=== PATIENT | female | born 1995 | race Caucasian/White ===

== ENCOUNTER → 2020-04-04 | Outpatient (REF) | payer OTHER ==
[2020-04-05 17:10] LABS: FREE T4 1.05 NG/DL (0.76-1.46); THYROID STIMULATING HORMONE 2.56 uIU/ML (0.358-3.740)
[2020-04-05 17:11] LABS: PROGESTERONE 1.09 NG/ML
[2020-04-05 17:12] LABS: FOLLICLE STIMULATING HORMONE 5.6 mIU/mL; LUTEINIZING HORMONE 3.9 mIU/mL
== END ==
LOC: M PLALAB 15:48
PROVIDERS: ATTEND Specialist
DX: N92.6 Irregular menstruation, unspecified (principal)
CPT/HCPCS: 36415; 83001; 83002; 84144; 84146; 84439; 84443; G0463

== ENCOUNTER → 2020-05-03 | Outpatient (CLI) | payer OTHER ==
[2020-05-03 16:34] LABS: HCG, SERUM QUALITATIVE POSITIVE (NEGATIVE)
== END ==
LOC: M PLALAB 12:31
PROVIDERS: ATTEND Physician Assistant
DX: L70.0 Acne vulgaris (principal)

== ENCOUNTER → 2020-05-08 | Outpatient (REF) | payer OTHER | LOC: M PLALAB 11:47 | PROVIDERS: ATTEND Advanced Practice Midwife | DX: Z34.90 Encounter for supervision of normal pregnancy, unspecified, unspecified trimester (principal) ==

== ENCOUNTER → 2020-05-10 | Outpatient (CLI) | payer OTHER | LOC: M PLALAB 12:17 | PROVIDERS: ATTEND Advanced Practice Midwife | DX: Z34.90 Encounter for supervision of normal pregnancy, unspecified, unspecified trimester (principal); Z3A.00 Weeks of gestation of pregnancy not specified ==

== ENCOUNTER → 2020-05-24 | Outpatient (REF) | payer OTHER ==
[2020-05-24 17:56] LABS: HEMATOCRIT 34.9 % (36.0-47.0); HEMOGLOBIN 11.5 g/dl (12.0-15.5); MEAN CORPUSCULAR HEMOGLOBIN 28.8 pg (27.0-33.0); MEAN CORPUSCULAR VOLUME 87.3 fl (80.0-96.0); PLATELET COUNT, AUTOMATED 262 10^3/uL (150-450); WHITE BLOOD COUNT 9.4 10^3/uL (4.0-10.0)
[2020-05-24 19:06] LABS: HEPATITIS C VIRUS ABY INDEX 0.1 INDEX (<0.8); HIV 1&2 SCREEN CENTAUR NEGATIVE (NEGATIVE)
== END ==
LOC: M PLALAB 15:31
PROVIDERS: ATTEND Specialist
DX: Z34.01 Encounter for supervision of normal first pregnancy, first trimester (principal)

== ENCOUNTER → 2020-07-14 | Outpatient (CLI) | payer OTHER | LOC: M PLALAB 10:52 | PROVIDERS: ATTEND Advanced Practice Midwife | DX: Z34.82 Encounter for supervision of other normal pregnancy, second trimester (principal); Z3A.00 Weeks of gestation of pregnancy not specified | CPT/HCPCS: 36415; G0463 ==

== ENCOUNTER → 2020-08-21 | Outpatient (CLI) | payer OTHER ==
--- NOTE | 2020-08-21 18:20 | REP ---
INDICATION: ANATOMY - TWINS. COMPARISON: None. TECHNIQUE: Transabdominal obstetric sonography. FINDINGS: Scanning through the gravid uterus demonstrates a viable twin, diamniotic, dichorionic intrauterine gestation. Fetus a is cephalic in lie. heart rate is recorded at 142 beats per minute. A posterior placenta is seen grade 1 without evidence of previa. Three-vessel umbilical cord is seen. Amniotic fluid is subjectively normal. No anomaly is seen. The following anatomic structures are identified in fetus a and are felt to be unremarkable: cranium, intracranial anatomy, face and profile nose and lips, four-chamber heart with left and right ventricular outflow tract views, diaphragm, left-sided stomach, abdominal wall cord insertion, right and left kidney, urinary bladder, spine, upper and lower extremities. Biometry chart fetus a: BPD 4.7 cm 20 weeks 1 day Head circumference 16.7 cm 19 weeks 3 days Abdominal circumference 13.2 cm, 18 weeks 5 days Femur length 2.9 cm, 18 weeks 5 days Humeral length 3.0 cm, 19 weeks 5 days HC AC ratio 1.27) 1.06-1.25 close) Cephalic index normal 0.79 Estimated weight 260 g, 0 lb 9 oz, 21st percentile for 19 weeks 2 days Fetus B is variable in lie and slightly to the right. Posterior fundal placenta is seen grade 1. Amniotic fluid is subjectively normal. heart rate is recorded at 161 beats per minute. No anomaly is seen in fetus B. The following anatomic structures are identified in fetus B and are felt to be unremarkable: cranium and intracranial anatomy, face and profile nose and lips, four-chamber heart with left and right ventricular outflow tract views, diaphragm, left-sided stomach, abdominal wall cord insertion, kidneys and bladder, spine, upper and lower extremities. Three-vessel cord is seen. Biometry chart fetus B: BPD 4.4 cm, 19 weeks 3 days Head circumference 16.1 cm, 18 weeks 6 days Abdominal circumference 13.8 cm, 19 weeks 1 day Femur length 2.9 cm, 19 weeks 0 days Humeral length 2.8 cm, 19 weeks 1 day HC AC ratio normal 1.17 Cephalic index normal 0.77 Estimated weight 272 g, 0 lb 9 oz, 31st percentile for 19 weeks 2 days Closed cervical length measured transabdominally is 3.2 cm. IMPRESSION: Viable twin intrauterine gestation at 19 weeks 2 days by today's composite sonographic criteria. LULU by today's sonography January 13, 2021. No complication identified. <Electronically signed by Cornelius Garcia > 08/21/20 [id number]
== END ==
LOC: M WHC 11:04
PROVIDERS: ATTEND Specialist
DX: O30.002 Twin pregnancy, unspecified number of placenta and unspecified number of amniotic sacs, second trimester (principal); Z3A.19 19 weeks gestation of pregnancy

== ENCOUNTER → 2020-10-11 | Outpatient (REF) | payer OTHER ==
[2020-10-11 13:10] LABS: HEMATOCRIT 32.2 % (36.0-47.0); HEMOGLOBIN 10.9 g/dl (12.0-15.5); MEAN CORPUSCULAR HEMOGLOBIN 30.4 pg (27.0-33.0); MEAN CORPUSCULAR HGB CONC 33.9 g/dl (32.0-36.5); MEAN CORPUSCULAR VOLUME 89.7 fl (80.0-96.0); PLATELET COUNT, AUTOMATED 226 10^3/uL (150-450); RED BLOOD COUNT 3.59 10^6/uL (4.00-5.40); WHITE BLOOD COUNT 11.3 10^3/uL (4.0-10.0)
== END ==
LOC: M PLALAB 10:49
PROVIDERS: ATTEND Specialist
DX: O30.042 Twin pregnancy, dichorionic/diamniotic, second trimester (principal)

== ENCOUNTER → 2020-11-09 | Outpatient (CLI) | payer OTHER ==
--- NOTE | 2020-11-10 07:57 | REP ---
INDICATION: GROWTH/TWINS COMPARISON: 08/21/2020 TECHNIQUE: Transabdominal obstetrical ultrasound with color Doppler evaluation. Transabdominal obstetrical ultrasound with color Doppler evaluation FINDINGS: Examination demonstrates dichorionic diamniotic twin live intrauterine . Gestational age by LMP 30 weeks 1 day with estimated date of delivery 01/17/2021. Cervix measures 2.8 cm and appears closed. TWIN A: Cephalic presentation towards right side of the uterus. heart rate equals 161 beats per minute. Placenta noted posterior and grade 2. Amniotic fluid volume deepest pocket: 4.6 cm Estimated weight by biometric measurements 1390 g (17th percentile) TWIN B: Breech presentation towards anterior left side of the uterus. heart rate equals 169 beats per minute. Placenta noted posterior/fundal and grade 2. Amniotic fluid volume deepest pocket: 3.8 cm Estimated weight by biometric measurements 1465 g (28th percentile) IMPRESSION: Twin gestation demonstrating appropriate concordant interval growth. No gross abnormalities are identified. <Electronically signed by Alton Crook > 11/10/20 [id number]
== END ==
LOC: M WHC 09:58
PROVIDERS: ATTEND Specialist
DX: O30.042 Twin pregnancy, dichorionic/diamniotic, second trimester (principal)
CPT/HCPCS: 76812; 76815; 90471; 90715; G0463

== ENCOUNTER → 2020-12-07 | Outpatient (CLI) | payer OTHER ==
[~2020-12-07] MED LIST: IBUP80TA PO; LABE100T4 PO; OXYC1TAB23 PO; PREN200C PO
--- NOTE | 2020-12-07 14:46 | REP ---
INDICATION: TWINS - GROWTH COMPARISON: 11/09/2020 TECHNIQUE: Transabdominal obstetrical ultrasound with color Doppler evaluation. FINDINGS: Examination demonstrates dichorionic diamniotic twin live intrauterine . Gestational age by LMP 34 weeks 1 day with estimated date of delivery 01/17/2021. Cervix appears closed. TWIN A: Cephalic presentation. heart rate equals 133 beats per minute. Placenta noted posteriorly and grade 2. Amniotic fluid volume deepest pocket: 3.2 cm Estimated weight by biometric measurements 2163 g 22nd percentile TWIN B: Breech presentation. heart rate equals 135 beats per minute. Placenta noted posterior/fundal and grade 2. Amniotic fluid volume deepest pocket: 3.1 cm Estimated weight by biometric measurements 2123 g 18th percentile IMPRESSION: Twin gestation demonstrating appropriate concordant interval growth. No gross abnormalities are identified. <Electronically signed by Alton Crook > 12/07/20 [id number]
== END ==
LOC: M WHC 08:50
PROVIDERS: ATTEND Specialist
DX: O30.042 Twin pregnancy, dichorionic/diamniotic, second trimester (principal)
CPT/HCPCS: 59025; 76816; G0463

== ENCOUNTER 2020-12-10 23:18 | Emergency (ER) | payer OTHER ==
[~2020-12-10] VITALS: Ht 172.7 cm; Wt 94.6 kg
[2020-12-10] MEDS ORDERED: PREN200C PO (23:25)
--- NOTE | 2020-12-11 00:14 | REPVR ---
PROCEDURE INFORMATION: Exam: US Duplex Right Lower Extremity Veins, Limited Exam date and time: 12/10/2020 11:49 PM Age: 25 years old Clinical indication: Pain; Leg, lower; Right; Additional info: Pain, swelling, tenderness TECHNIQUE: Imaging protocol: Real-time Duplex ultrasound of the Right Lower Extremity with 2-D suh scale, color Doppler flow and spectral waveform analysis with image documentation. Limited exam was focused on the right lower extremity veins. COMPARISON: No relevant prior studies available. FINDINGS: Right deep veins: Unremarkable. The common femoral, femoral, proximal profunda femoral and popliteal veins are patent without thrombus. Normal Doppler waveforms. Normal compressibility and/or augmentation response. Right superficial veins: Unremarkable. Saphenofemoral junction is patent without thrombus. Soft tissues: Unremarkable. IMPRESSION: No evidence of deep vein thrombosis. Electronically signed by: Kal Santana On 12/11/2020 00:14:01 AM
[2020-12-11 00:53] VITALS: BP 150/90
== END 2020-12-11 01:33 | disposition admitted as inpatient to this hospital (09) ==
LOC: M ED 23:18
DX: O12.03 Gestational edema, third trimester (principal); Z3A.35 35 weeks gestation of pregnancy

== ENCOUNTER 2020-12-11 01:34 | Inpatient (IN) | payer OTHER ==
[~2020-12-11] VITALS: Ht 172.7 cm; Wt 94.6 kg
[2020-12-11] VITALS (32 sets, daily range): BP systolic 118–162; BP diastolic 72–108
[~2020-12-11 01:34] MED LIST changes: -IBUP80TA PO; -LABE100T4 PO; -OXYC1TAB23 PO
[2020-12-11 02:09] LABS: HEMATOCRIT 31.4 % (36.0-47.0); HEMOGLOBIN 10.2 g/dl (12.0-15.5); MEAN CORPUSCULAR HEMOGLOBIN 28.2 pg (27.0-33.0); MEAN CORPUSCULAR HGB CONC 32.5 g/dl (32.0-36.5); MEAN CORPUSCULAR VOLUME 86.7 fl (80.0-96.0); PLATELET COUNT, AUTOMATED 177 10^3/uL (150-450); RED BLOOD COUNT 3.62 10^6/uL (4.00-5.40); WHITE BLOOD COUNT 11.5 10^3/uL (4.0-10.0)
[2020-12-11 02:41] LABS: TOTAL PROTEIN,RANDOM URINE 305.6 MG/DL (0.0-12.0)
[2020-12-11 02:58] LABS: ALBUMIN 2.3 GM/DL (3.2-5.2); ALT/SGPT 17 U/L (12-78); BILIRUBIN,TOTAL 0.2 MG/DL (0.2-1.0); BLOOD UREA NITROGEN 15 MG/DL (7-18); CALCIUM LEVEL 8.3 MG/DL (8.5-10.1); CARBON DIOXIDE LEVEL 23 MEQ/L (21-32); CHLORIDE LEVEL 109 MEQ/L (98-107); CREATININE FOR GFR 0.88 MG/DL (0.55-1.30); GLOMERULAR FILTRATION RATE > 60.0 (>60); GLUCOSE, FASTING 87 MG/DL (70-100); POTASSIUM SERUM 4.1 MEQ/L (3.5-5.1); SODIUM LEVEL 140 MEQ/L (136-145); TOTAL PROTEIN 5.5 GM/DL (6.4-8.2)
[2020-12-11] MEDS ORDERED: BETAMETHASONE SOLUSPAN 6MG/ML 5ML VIAL (J0702 PER 3MG) IM SCH ×2 (03:30→15:30)
[2020-12-11] MEDS ORDERED: ACETAMINOPHEN 500 MG TAB PO ONE ×2 (03:40→13:05)
[2020-12-11] MEDS ORDERED: PRENATAL VITAMINS CHEWABLE TABLET PO SCH (09:00)
[2020-12-11 10:19] LABS: HEMATOCRIT 30.4 % (36.0-47.0); HEMOGLOBIN 9.9 g/dl (12.0-15.5); MEAN CORPUSCULAR HGB CONC 32.6 g/dl (32.0-36.5); MEAN CORPUSCULAR VOLUME 86.1 fl (80.0-96.0); PLATELET COUNT, AUTOMATED 168 10^3/uL (150-450); RED BLOOD COUNT 3.53 10^6/uL (4.00-5.40); WHITE BLOOD COUNT 9.8 10^3/uL (4.0-10.0)
[2020-12-11 10:44] LABS: ALBUMIN 2.4 GM/DL (3.2-5.2); ALT/SGPT 19 U/L (12-78); BILIRUBIN,TOTAL 0.3 MG/DL (0.2-1.0); BLOOD UREA NITROGEN 17 MG/DL (7-18); CALCIUM LEVEL 8.5 MG/DL (8.5-10.1); CARBON DIOXIDE LEVEL 21 MEQ/L (21-32); CHLORIDE LEVEL 107 MEQ/L (98-107); CREATININE FOR GFR 1.06 MG/DL (0.55-1.30); GLOMERULAR FILTRATION RATE > 60.0 (>60); GLUCOSE, FASTING 114 MG/DL (70-100); POTASSIUM SERUM 4.2 MEQ/L (3.5-5.1); SODIUM LEVEL 138 MEQ/L (136-145); TOTAL PROTEIN 5.5 GM/DL (6.4-8.2)
--- NOTE | 2020-12-11 10:57 | HPEPDOC ---
Obstetrical History & Physical General Date of Admission 12/11/20 History of Present Illness Jessica is a 25yo with di-di twins at 34w5d by 6wk u/s presenting from the ER for elevated bp. She originally called me last night to ask about the swelling in her legs, and specifically her concern that her legs were different in size (right calf larger than left). No other sx. I asked her to come in to the ER to rule out DVT and she was evaluated there with ultrasound which was negative for DVT. However, she had a severe range bp followed by 150/90, so I asked that she be sent up to L&D for pre-eclampsia workup. Labs were obtained and resulted urine prot:creat 1.6, diagnostic of pre-eclampsia in the setting of her persistently elevated (mostly mild range) bp's. LFTs wnl. Creat 0.88, plt 177 (this is decreased from 226 on 10/11). H/H 10.2/31.4. She was noted to also be reymundo when she arrived to L&D, though ctx are not strong. She has good movement. No LOF. No VB. No ADAMS. No vision changes. Information Provided By: Patient Care Care: Good Care Dating Final EDC: Jan 17, 2021 Final EDC by: 1st trimester (US) Antepartum Course Diagnos(e)s Infertility treated with clomid, rh neg received rhogam on 10/27 Past Medical History Past Obstetrical History : Past Obstetrical History: Primgravida Past Medical History Medical History benign Surgical History: [place] teeth Family History Significant Family History: No pertinent family hx Social History Marital Status: Family situation: Spouse/partner home Psychosocial History: No pertinent psych hx * Smoker: non-smoker Alcohol: Denies Drugs: denies Allergies Coded Allergies: No Known Allergies (Unverified , 12/10/20) Medications Scheduled Docosahexanoic Acid ( Dha) 200 Mg Capsule, 1 CAP PO DAILY Physical Examination Physical Examination GENERAL: Alert and oriented times three. ABDOMEN: Gravid and non-tender to touch. EXTREMITIES: 2+ pedal edema Vital Signs/I&O Vital Signs Date Time Temp Pulse Resp B/P (MAP) Pulse Ox O2 Delivery O2 Flow Rate FiO2 12/11/20 08:48 85 18 130/80 (97) 12/11/20 07:18 99.3 12/11/20 02:05 Room Air Laboratory Data 24H LABS Laboratory Tests 2 12/11/20 01:53: Urine Random Creatinine 187.0, Urine Random Total Protein 305.6H 12/11/20 02:01: Nucleated Red Blood Cells % (auto) 0.2H, Anion Gap 8, Glomerular Filtration Rate > 60.0, Calcium Level 8.3L, Total Bilirubin 0.2, Aspartate Amino Transf ( AST/SGOT) 27, Alanine Aminotransferase (ALT/SGPT) 17, Alkaline Phosphatase 329H, Total Protein 5.5L, Albumin 2.3L, Albumin/Globulin Ratio 0.7L 12/11/20 09:59: CBC/BMP Laboratory Tests 12/11/20 02:01 Pertinent Laboratoy Data Blood Type: O- RBC Antibody Screen: Negative HIV: Negative Hepatitis B: Negative Hepatitis C: Negative Rapid Plasma Reagin: Nonreactive Rubella: Immune Chlamydia/Gonorrhea: Negative Group B Streptococcus: Unknown Quad Screen Test: Negative (NIPT low risk dizygotic males) Glucose Tolerance Test: 84 Anatomy Ultrasound Ultrasound Date: Aug 21, 2020 Placenta Location: Posterior (/posterior) Normal Anatomy: Yes (for both twins) Placenta Previa: No Other Ultrasounds 12/07/20: twin A cephalic 22nd %ile, twin B breech 18%ile. Steroid Therapy Steroid Therapy: Yes (first dose given at 0330 on 12/11) Vaginal Examination Dilation: 1cm Effacement: 90% Station: -1 Cervical Consistency: Soft Cervical Position: Middle Presentation: Cephalic presentation Assessment Heart Rate (FHR): 120 (130) Variability: Moderate (x2) Accelerations: Positive (x2) Decelerations: None (x2) Tocometer Contractions: Yes Frequency: regular, every 3-7 min. Duration: greater than 60 seconds Strength: palpated as mild Assessment/Plan Assessment Jessica is a 25yo with di-di twins at 34w5d by 6wk u/s with new diagnosis of pre-eclampsia withOUT severe features. She was solidly normotensive for all of her OB visits, including her most recent visit on 12/07. However, on presentation she had a severe range bp with persistent mild range bp's after. Urine prot:creat 1.6. creat 0.88. plt 177. She is anemic. No sx of severe pre-E. Twin A cephalic on SCE, /-1. Regular ctx occurring that pt feels as mild. Twin B breech on GS done 12/07- twins have been concordant, most recently seen to be 22%ile/18%ile. Reassuring status x2 with Cat I FHRT x2. Plan Counseled pt regarding new dx of pre-eclampsia withOUT severe features Currently on observation status Pt given 1st dose IM 12mg betamethasone at 0330 on 12/11 with plan for 2nd dose 24hr after 24hr urine protein collection Diet: regular for now CEFM Group B Streptococcus (GBS) to be obtained Will repeat CBC and CMP 8hr after prior labs Discussed plan of care with oncoming provider, OCTAVIA Browning and also Dr. Ray as he has seen patient for her entire Will develop plan for delivery as we continue to observe for possible progression into labor vs worsening sx of pre-E, etc. MD Karime Crain Katrina D MD December 11, 2020 10:57
[2020-12-11] MEDS ORDERED: TRANEXAMIC ACID INJection 1,000 MG in NS 100 ML IV PRN (12:35)
[2020-12-11] MEDS ORDERED: OXYTOCIN DRIP 30 UNITS in IV 1 EA IV PRN (12:35)
[2020-12-11] MEDS ORDERED: CARBOPROST TROMETHAMINE 250 MCG/ML AMP IM PRN (12:35)
--- NOTE | 2020-12-11 13:15 | IPNPDOC ---
Obstetrical Progress Note Date of Service December 11, 2020 Subjective Patient reports she has a mild headache. Objective Vital Signs Date Time Temp Pulse Resp B/P (MAP) Pulse Ox O2 Delivery O2 Flow Rate FiO2 12/11/20 12:50 81 18 143/86 (105) 12/11/20 07:18 99.3 12/11/20 02:05 Room Air Item Value Date Time Sodium Level 138 MEQ/L 12/11/20 0959 Potassium Level 4.2 MEQ/L 12/11/20 0959 Chloride Level 107 MEQ/L 12/11/20 0959 Carbon Dioxide Level 21 MEQ/L 12/11/20 0959 Anion Gap 10 MEQ/L 12/11/20 0959 Blood Urea Nitrogen 17 MG/DL 12/11/20 0959 Creatinine 1.06 MG/DL 12/11/20 0959 Glomerular Filtration Rate > 60.0 12/11/20 0959 Fasting Glucose 114 MG/DL H 12/11/20 0959 Calcium Level 8.5 MG/DL 12/11/20 0959 Total Bilirubin 0.3 MG/DL 12/11/20 0959 Aspartate Amino Transf (AST/SGOT) 27 U/L 12/11/20 0959 Alanine Aminotransferase (ALT/SGPT) 19 U/L 12/11/20 0959 Alkaline Phosphatase 315 U/L H 12/11/20 0959 Total Protein 5.5 GM/DL L 12/11/20 0959 Albumin 2.4 GM/DL L 12/11/20 0959 Albumin/Globulin Ratio 0.8 L 12/11/20 0959 Assessment Heart Rate (FHR): 130 (Twin A 130/Twin B 125) Variability: Moderate Accelerations: Positive Decelerations: None Heart Rate Tracing: Category I Tocometer Contractions: Yes Frequency: irregular Assessment and Plan Age: 25 EGA at Admission: 34.5 Status: Reassuring Anticipate: Section Additional Comments Will give betamethasone earlier at [address] Ray on changes in creatinine. 1600 lab results will help determine timing of delivery. Reviewed with patient. Bedside ultrasound done and Twin A is cephalic and Twin B is breech. Patient desires section if Twin B is not cephalic. The risks/benefits alternatives have been discussed previously with her and again today. Tylenol ordered for headache. MIHAELA MILLER CNM December 11, 2020 13:15
[2020-12-11 16:00] LABS: HEMOGLOBIN 10.1 g/dl (12.0-15.5); MEAN CORPUSCULAR HEMOGLOBIN 28.1 pg (27.0-33.0); MEAN CORPUSCULAR HGB CONC 32.6 g/dl (32.0-36.5); MEAN CORPUSCULAR VOLUME 86.4 fl (80.0-96.0); PLATELET COUNT, AUTOMATED 192 10^3/uL (150-450); RED BLOOD COUNT 3.59 10^6/uL (4.00-5.40)
[2020-12-11 16:22] LABS: ALBUMIN 2.4 GM/DL (3.2-5.2); ALT/SGPT 18 U/L (12-78); BILIRUBIN,TOTAL 0.3 MG/DL (0.2-1.0); BLOOD UREA NITROGEN 18 MG/DL (7-18); CALCIUM LEVEL 8.4 MG/DL (8.5-10.1); CARBON DIOXIDE LEVEL 20 MEQ/L (21-32); CHLORIDE LEVEL 107 MEQ/L (98-107); CREATININE FOR GFR 0.92 MG/DL (0.55-1.30); GLOMERULAR FILTRATION RATE > 60.0 (>60); GLUCOSE, FASTING 79 MG/DL (70-100); POTASSIUM SERUM 4.1 MEQ/L (3.5-5.1); SODIUM LEVEL 136 MEQ/L (136-145); TOTAL PROTEIN 5.9 GM/DL (6.4-8.2)
--- NOTE | 2020-12-11 17:28 | IPNPDOC ---
Text Note Date of Service The patient was seen on 12/11/20. NOTE Reviewed labs with Dr. Ray. They are stable and patient's BP's are stable. Dr. Ray's plan is for a primary section at 0730. Patient and updated on plan. She may eat a regular diet and NPO tonight after midnight. She does report a slight headache but thinks it is because she hasn't eaten all day. Encouraged to eat dinner and we will evaluate if her headache is still present after she eats. All questions answered. Patient encouraged to let us know any changes including preeclamptic changes. Category I FHR tracing for both Twin A and Twin B. VS,Fishbone, I+O VS, Fishbone, I+O Laboratory Tests 12/11/20 02:01 12/11/20 09:59 12/11/20 15:52 Vital Signs Date Time Temp Pulse Resp B/P (MAP) Pulse Ox O2 Delivery O2 Flow Rate FiO2 12/11/20 16:36 80 16 148/89 (108) 12/11/20 14:34 98.9 12/11/20 02:05 Room Air MIHAELA MILLER CNM December 11, 2020 17:28
[2020-12-12] VITALS (18 sets, daily range): BP systolic 120–146; BP diastolic 65–102
[2020-12-12] MEDS ORDERED: LACTATED RINGER'S 1000 ML IV STA (05:06)
[2020-12-12] MEDS ORDERED: ceFAZolin SOD 2 GM in IV 1 EA IV ONE (05:10)
[2020-12-12] MEDS ORDERED: BICITRA 30ML SOLN UDC PO ONE (05:10)
[2020-12-12 05:29] LABS: HEMOGLOBIN 9.6 g/dl (12.0-15.5); MEAN CORPUSCULAR HEMOGLOBIN 27.8 pg (27.0-33.0); PLATELET COUNT, AUTOMATED 199 10^3/uL (150-450); RED BLOOD COUNT 3.45 10^6/uL (4.00-5.40); WHITE BLOOD COUNT 15.2 10^3/uL (4.0-10.0)
[2020-12-12 05:54] LABS: ALT/SGPT 23 U/L (12-78); BILIRUBIN,TOTAL 0.3 MG/DL (0.2-1.0); CREATININE FOR GFR 1.07 MG/DL (0.55-1.30); GLOMERULAR FILTRATION RATE > 60.0 (>60); LDH LACTATE DEHYDROGENASE 240 U/L (84-246); URIC ACID 6.7 MG/DL (2.6-6.0)
[2020-12-12] MEDS ORDERED: METOCLOPRAMIDE INJ 10MG/2ML VIAL (J2765 PER 1) As Ordered ONE (07:20)
[2020-12-12] MEDS ORDERED: ePHEDrine SULFATE 25 MG/5 ML(5MG/ML) SYRINGE As Ordered ONE (07:20)
[2020-12-12] MEDS ORDERED: MORPHINE PRES-FREE INJ 10 MG/10 ML VIAL (J2274) As Ordered ONE (07:20)
[2020-12-12] MEDS ORDERED: PHENYLephrine 500MCG 5ML (100MCG/ML) SYRINGE As Ordered ONE (07:20)
[2020-12-12] MEDS ORDERED: diphenhydrAMINE 50MG/ML VIAL (J1200) IV PRN (07:45)
[2020-12-12] MEDS ORDERED: NALBUPHINE HCL 10 MG/ML AMP (J2300) IV PRN ×2 (07:45→09:10)
[2020-12-12] MEDS ORDERED: NALOXONE INJ 0.4MG/1ML VIAL (J2310 PER 1MG) IV PRN ×2 (07:45)
[2020-12-12] MEDS ORDERED: METOCLOPRAMIDE INJ 10MG/2ML VIAL (J2765 PER 1) IV PRN (07:45)
[2020-12-12] MEDS ORDERED: ONDANSETRON 4MG/2ML VIAL IV PRN ×2 (07:45→09:10)
[2020-12-12] MEDS ORDERED: KETOROLAC 60MG 2ML VIAL As Ordered ONE (08:16)
[2020-12-12] MEDS ORDERED: ONDANSETRON 4MG/2ML VIAL As Ordered ONE (08:16)
[2020-12-12] MEDS ORDERED: OXYTOCIN DRIP 30 UNITS in IV 1 EA IV SCH (08:35)
--- NOTE | 2020-12-12 08:40 | ROOPDOC ---
[facility] Report Of Operation Report of Operation DATE OF PROCEDURE: 12/12/20 Report of operation Preoperative diagnosis: 34 6/7 weeks, twins, preeclampsia Postoperative diagnosis: same Procedure: Primary low transverse section Surgeon: Alberto Luque M.D. Asst.: Sharon Monroe MD EBL: 600 ml. Urine output: 100 mL's. Findings: Twin A: 4 lbs. 14 oz. male infant, 's 9 and 9, vertex normal uterus, fallopian tubes, ovaries. Twin B: 4 lb 11 oz male , 's 9, 9, breech Operative summary: Patient taken to the operating room where spinal anesthesia was induced. She was prepped and draped sterile fashion in the supine position. A Schmitt catheter was placed. A Pfannenstiel skin incision was made with scalpel. Fascia was incised and extended bilaterally. The peritoneal cavity was entered. A Mobius retractor was placed. A bladder flap was created. A curvilinear incision was made in lower uterine segment until Clear fluid was noted. The incision was extended manually. Twin A was delivered from the vertex position without difficulty. Cord was doubly clamped and cut. The was handed waiting nurses. Membranes were ruptured for twin B. Twin B delivered from the purvi breech position without difficulty. The placenta's were expressed. Uterus was closed with O-Vicryl in a running locked fashion. A second imbricating layer of Vicryl was placed. Peritoneum was closed with 2-0 Vicryl a running fashion. Fascia was closed with 0 Vicryl in running fashion. Skin was closed 4-0 Monocryl subcuticular sutures. Sponge, instrument and needle counts were correct. Sharon Monroe MD, assisted with all aspects of the procedure. He helped close each layer of the incision and deliver the fetus.. ALBERTO LUQUE MD December 12, 2020 08:40
[2020-12-12] MEDS ORDERED: OXYTOCIN 30 UNITS IN 0.9% NaCl 500ML IV BAG (J2590) As Ordered ONE (08:48)
[2020-12-12] MEDS ORDERED: RHOGAM 300 MCG (1500 IU) INJ (J2790) IM SCH (09:00)
[2020-12-12] MEDS ORDERED: PERCOCET 5MG/325MG TAB PO PRN ×2 (09:00)
[2020-12-12] MEDS ORDERED: MOM 30ML SUSPENSION UDC PO PRN (09:00)
[2020-12-12] MEDS ORDERED: MEASLES,MUMPS,RUBELLA VACCINE INJ (MMR-II) (90707) SC SCH (09:00)
[2020-12-12] MEDS ORDERED: SIMETHICONE 80MG CHEW TAB PO PRN (09:00)
[2020-12-12] MEDS ORDERED: oxyCODONE 5MG TAB PO PRN (09:10)
[2020-12-12] MEDS ORDERED: HYDROMORPHONE HCL 0.5 MG/ 0.5 ML SYRINGE (J1170 PER 1) IV PRN (09:10)
[2020-12-12] MEDS ORDERED: MEPERIDINE INJ 25 MG/ML VIAL (J2175) IV PRN (09:10)
[2020-12-12] MEDS ORDERED: KETOROLAC 30 MG/ML 1ML VIAL IV PRN (09:10)
[2020-12-12] MEDS ORDERED: fentaNYL 100 MCG/2 ML INJECTION (J3010) IV PRN (09:10)
[2020-12-12] MEDS: DOCUSATE SODIUM 100MG CAPSULE PO SCH ×2 (10:54→21:01)
[2020-12-12] MEDS: PRENATAL VITAMINS CHEWABLE TABLET PO SCH (10:54)
[2020-12-12] MEDS: LR 1,000 ML IV SCH ×3 (13:04→22:50)
[2020-12-12] MEDS ORDERED: LR 1,000 ML IV ONE (14:15)
[2020-12-12] MEDS ORDERED: LR 500 ML IV ONE ×2 (14:15→18:20)
[2020-12-12] MEDS: KETOROLAC 30 MG/ML 1ML VIAL IV SCH ×2 (15:21→21:01)
[2020-12-13] VITALS (7 sets, daily range): BP systolic 138–174; BP diastolic 86–106
[2020-12-13] MEDS: KETOROLAC 30 MG/ML 1ML VIAL IV SCH (02:56)
[2020-12-13 07:00] LABS: HEMATOCRIT 25.1 % (36.0-47.0); HEMOGLOBIN 8.1 g/dl (12.0-15.5); MEAN CORPUSCULAR HEMOGLOBIN 28.6 pg (27.0-33.0); MEAN CORPUSCULAR HGB CONC 32.3 g/dl (32.0-36.5); MEAN CORPUSCULAR VOLUME 88.7 fl (80.0-96.0); PLATELET COUNT, AUTOMATED 171 10^3/uL (150-450); RED BLOOD COUNT 2.83 10^6/uL (4.00-5.40)
[2020-12-13] MEDS ORDERED: IBUP80TA PO (07:09)
[2020-12-13] MEDS ORDERED: OXYC1TAB23 PO (07:09)
[2020-12-13] MEDS: PRENATAL VITAMINS CHEWABLE TABLET PO SCH (07:45)
[2020-12-13] MEDS: DOCUSATE SODIUM 100MG CAPSULE PO SCH ×2 (07:45→21:14)
--- NOTE | 2020-12-13 07:45 | IPNPDOC ---
Progress Note Date of Service: December 13, 2020 Day#: 1 Progress Note SUBJECT: Doing well without complaints. Ambulating, voiding and pain is well- controlled. Denies headaches, visual changes or abd pain. Reports minimal lochia. OBJECTIVE: VITAL SIGNS: Mild range BPs afebrile. Alert and oriented times three. Abdomen: Fundus firm at U-2. Soft, NTTP. Incision: dressed Ext: neg calf tenderness. ASSESSMENT: /postoperative day #1 status post delivery. Recovering in stable condition. PLAN: 1. Continue routine /postoperative care 2. Discharge plans for tomorrow Sharon Monroe MD VS, I&O, 24H, Fishbone Vital Signs/I&O Vital Signs Date Time Temp Pulse Resp B/P (MAP) Pulse Ox O2 Delivery O2 Flow Rate FiO2 12/13/20 05:56 98.9 79 16 141/95 (110) 99 Room Air I&O- Last 24 Hours up to 6 AM 12/13/20 05:59 Intake Total 2475 ml Output Total 1950 ml Balance 525 ml Laboratory Data 24H LABS Laboratory Tests 2 12/13/20 06:32: Nucleated Red Blood Cells % (auto) 0.5H CBC/BMP Laboratory Tests 12/13/20 06:32 Microbiology Microbiology 12/11/20 Respiratory Virus Panel (PCR) (TAMIKO) - Final, Complete 12/11/20 Group B Streptococcus Screen (TAMIKO), Received Pending SHARON MONROE MD. December 13, 2020 07:45
[2020-12-13] MEDS: IBUPROFEN 800 MG TAB PO SCH ×2 (10:27→18:00)
[2020-12-14 02:00] VITALS: BP 178/88
[2020-12-14 02:10] VITALS: BP 141/80
[2020-12-14] MEDS: IBUPROFEN 800 MG TAB PO SCH ×3 (02:19→18:15)
[2020-12-14 06:00] VITALS: BP 176/102
[2020-12-14 06:16] VITALS: BP 158/88
[2020-12-14] MEDS: DOCUSATE SODIUM 100MG CAPSULE PO SCH ×2 (10:12→21:46)
[2020-12-14] MEDS: PRENATAL VITAMINS CHEWABLE TABLET PO SCH (10:12)
[2020-12-14] MEDS: LABETALOL 100MG TAB PO SCH ×2 (10:14→21:46)
[2020-12-14 18:00] VITALS: BP_SYST 150; BP_SYST 174; BP_DIAS 104; BP_DIAS 86
[2020-12-15 01:30] VITALS: BP 146/75
[2020-12-15] MEDS: IBUPROFEN 800 MG TAB PO SCH ×2 (01:57→10:47)
[2020-12-15 05:37] VITALS: BP 139/90
[2020-12-15 09:27] VITALS: BP 141/84
[2020-12-15] MEDS: DOCUSATE SODIUM 100MG CAPSULE PO SCH (09:27)
[2020-12-15] MEDS: LABETALOL 100MG TAB PO SCH (09:27)
[2020-12-15] MEDS: PRENATAL VITAMINS CHEWABLE TABLET PO SCH (09:27)
--- NOTE | 2020-12-15 10:58 | DS.PDOC ---
Discharge Summary General Date of Admission December 11, 2020 at 13:30 Date of Discharge December 15, 2020 Discharge Summary PROCEDURES PERFORMED DURING STAY: Primary section ADMITTING DIAGNOSES: 1. Di/Di twin gestation, 34w5d 2. PreEclampsia DISCHARGE DIAGNOSES: 1. Primary section 2. Preeclampsia COMPLICATIONS/CHIEF COMPLAINT: LABOR. HISTORY OF PRESENT ILLNESS: 25yo G1 admitted for preeclampsia. Known di/di twin gestation. Patient requested primary due to breech presentation of Baby B. Performed by Dr Ray 12/12/2020. HOSPITAL COURSE: Ambulating. Adequate pain management. Tolerating regular diet. Pumping, . Voiding. Passing flatus. Blood pressures improved on labetalol 100mg BID DISCHARGE MEDICATIONS: Please see below. ALLERGIES: Please see below. PHYSICAL EXAMINATION ON DISCHARGE: VITAL SIGNS: Please see below. GENERAL: No distress HEENT: WNL NECK: Supple CARDIOVASCULAR EXAMINATION: HRR, blood pressures WNL or mild range RESPIRATORY EXAMINATION: Unlabored, clear ABDOMINAL EXAMINATION: Fundus firm. Dressing intact EXTREMITIES: Equal strength and motion SKIN: Intact NEUROLOGICAL EXAMINATION: Grossly intact PSYCHIATRIC EXAMINATION: Appropriate LABORATORY DATA: Please see below. PROGNOSIS: Good ACTIVITY: As tolerated. Pelvic rest. DIET: As tolerated DISCHARGE PLAN: Discharge today. Continue labetalol 100mg BID. Office visit early next week for blood pressure check. Remove dressing day 5 DISPOSITION: Home DISCHARGE INSTRUCTIONS: 1. Pelvic rest. Continue vitamins. Medications as ordered. Call with fever, nausea, vomiting, chills, foul lochia, wound exudate or evidence infection. RTO early next week for blood pressure check. DISCHARGE CONDITION: Stable TIME SPENT ON DISCHARGE: Greater than 10 minutes. Vital Signs/I&Os Vital Signs Date Time Temp Pulse Resp B/P (MAP) Pulse Ox O2 Delivery O2 Flow Rate FiO2 12/15/20 09:27 91 141/84 12/15/20 05:37 99.3 17 98 Room Air Microbiology Microbiology 12/11/20 Respiratory Virus Panel (PCR) (TAMIKO) - Final, Complete 12/11/20 Group B Streptococcus Screen (TAMIKO) - Final, Complete Strep Agalactiae Group B Discharge Medications Scheduled Docosahexanoic Acid ( Dha) 200 Mg Capsule, 1 CAP PO DAILY, (Reported) Ibuprofen (Ibuprofen) 800 Mg Tablet, 800 MG PO Q8H Scheduled PRN Oxycodone HCl/Acetaminophen (Oxycodone-Acetaminophen 5-325) 1 Each Tablet, 1 TAB PO TIDP PRN for pain Allergies Coded Allergies: No Known Allergies (Unverified , 12/10/20) Dary Paredes CNM December 15, 2020 10:58
[2020-12-15] MEDS ORDERED: LABE100T4 PO (11:00)
== END 2020-12-15 12:45 | disposition home or self-care (01) | DRG 773 ==
LOC: M LDO 01:34 → M LDI 13:30 → M OBS 12-12 09:55
PROVIDERS: ADMIT Advanced Practice Midwife; ATTEND Advanced Practice Midwife
PROC: 10D00Z1 Extraction of Products of Conception, Low, Open Approach (ICD-10-PCS; principal; 2020-12-12 07:36)
DX: O14.94 Unspecified pre-eclampsia, complicating childbirth (principal); Z3A.34 34 weeks gestation of pregnancy; Z37.2 Twins, both liveborn; O60.14X0 Preterm labor third trimester with preterm delivery third trimester, not applicable or unspecified; O32.1XX0 Maternal care for breech presentation, not applicable or unspecified; O30.043 Twin pregnancy, dichorionic/diamniotic, third trimester

== ENCOUNTER 2020-12-28 18:19 | Emergency (ER) | payer OTHER ==
[~2020-12-28] VITALS: Ht 172.7 cm; Wt 72.7 kg
[~2020-12-28 18:19] MED LIST changes: +IBUP80TA PO; +LABE100T4 PO; +OXYC1TAB23 PO
[2020-12-28] MEDS ORDERED: KETOROLAC 30 MG/ML 1ML VIAL IV ONE (19:40)
[2020-12-28] MEDS ORDERED: NS 500 ML IV ONE (19:40)
[2020-12-28 19:44] LABS: BASO # 0.1 10^3/uL (0.0-0.2); BASO % 0.6 % (0.0-1.0); EOS # 0.2 10^3/uL (0.0-0.5); EOS % 1.8 % (0.0-3.0); HEMATOCRIT 32.3 % (36.0-47.0); HEMOGLOBIN 10.2 g/dl (12.0-15.5); LYMPH # 1.7 10^3/uL (1.5-5.0); MEAN CORPUSCULAR HEMOGLOBIN 27.4 pg (27.0-33.0); MEAN CORPUSCULAR HGB CONC 31.6 g/dl (32.0-36.5); MEAN CORPUSCULAR VOLUME 86.8 fl (80.0-96.0); MONO # 0.5 10^3/uL (0.0-0.8); MONO % 6.2 % (2.0-8.0); NEUTROPHILS # 5.9 10^3/uL (1.5-8.5); PLATELET COUNT, AUTOMATED 324 10^3/uL (150-450); RED BLOOD COUNT 3.72 10^6/uL (4.00-5.40); WHITE BLOOD COUNT 8.3 10^3/uL (4.0-10.0)
[2020-12-28 20:00] VITALS: BP 130/82
[2020-12-28 20:04] LABS: BLOOD UREA NITROGEN 13 MG/DL (7-18); CALCIUM LEVEL 8.6 MG/DL (8.5-10.1); CARBON DIOXIDE LEVEL 23 MEQ/L (21-32); CHLORIDE LEVEL 110 MEQ/L (98-107); CK-MB VALUE MASS < 1.0 NG/ML (<3.6); CPK CREATINE PHOSPHOKINASE 55 U/L (26-192); CREATININE FOR GFR 0.73 MG/DL (0.55-1.30); GLOMERULAR FILTRATION RATE > 60.0 (>60); GLUCOSE, FASTING 84 MG/DL (70-100); MB/CK RELATIVE INDEX 1.82 (< OR =4); POTASSIUM SERUM 3.8 MEQ/L (3.5-5.1); SODIUM LEVEL 142 MEQ/L (136-145); TROPONIN I < 0.02 NG/ML (< 0.10)
[2020-12-28] MEDS ORDERED: ISOVUE-370 76% 100ML VIAL As Ordered ONE (20:16)
--- NOTE | 2020-12-28 21:51 | REPVR ---
PROCEDURE INFORMATION: Exam: CTA Chest with Contrast Exam date and time: 12/28/20 (8:37pm) Age: 25 years old Clinical indication: Chest pressure and pain following recent surgery. S/P (< 2 weeks ago). TECHNIQUE: Imaging protocol: Computed tomographic angiography of the chest with contrast. 3D rendering (Not supervised by radiologist): MIP and/or 3D reconstructed images were created by the technologist. Radiation optimization: All CT scans at this facility use at least one of these dose optimization techniques: automated exposure control; mA and/or kV adjustment per patient size (includes targeted exams where dose is matched to clinical indication); or iterative reconstruction. Contrast material: Isovue 370 Contrast volume: 75 ml Contrast route: IV COMPARISON: No relevant prior studies available FINDINGS: Pulmonary arteries: Normal. No pulmonary emboli. Aorta: Unremarkable. No aortic aneurysm. No aortic dissection. Lungs: No consolidation. No masses. Minimal posterior left basilar atelectasis. Pleural spaces: No pneumothorax. Minimal left pleural effusion. Heart: Unremarkable. No cardiomegaly. No pericardial effusion. Lymph nodes: Unremarkable. No enlarged lymph nodes. Bones/joints: Unremarkable. No acute fracture. Soft tissues: Unremarkable. Upper abdomen: Prominent spleen. IMPRESSION: No filling defects suspicious for pulmonary emboli are seen. There is no CT evidence of aortic dissection nor leakage. No aortic aneurysm is appreciated. No focal infiltrates. Minimal left pleural effusion. Electronically signed by: Catarina Guillen On 12/28/2020 21:50:44 PM
--- NOTE | 2020-12-29 09:22 | ECGEPIP ---
[facility] - ED Test Date: 2020-12-28 Pat Name: CHARLINE DEL RIO Department: Room: - Gender: Female Tag Stringer: ED : 1995 Requested By: KVNG Gamez Order Number: [id number] Reading MD: Hema Allan Measurements Intervals [place] Rate: 93 P: 37 OH: 114 QRS: -16 QRSD: 76 T: 18 QT: 346 QTc: 430 Interpretive Statements Normal sinus rhythm Minimal voltage criteria for LVH, may be normal variant ( R in aVL ) NO PRIORS FOR COMPARISON Electronically Signed on 12-29-2020 9:22:36 EDT by Hema Allan
--- NOTE | 2020-12-30 07:40 | ED PDOC ---
Post-Departure Follow-Up certified letter sent to pt re formal read of cta chsst. obtain pcp name and fax for fu Trina Malone MD Dec 30, 2020 07:40
== END 2020-12-28 23:16 | disposition home or self-care (01) ==
LOC: EDBD 18:19 → M ED 18:19
DX: R07.89 Other chest pain (principal); Z79.899 Other long term (current) drug therapy
CPT/HCPCS: 71275; 80048; 82550; 82553; 84484; 85025; 93005; 93041; 94760; 96361; 96374; 99285; J1885; Q9967

== ENCOUNTER → 2021-05-09 | Outpatient (CLI) | payer OTHER ==
[2021-05-09 10:14] LABS: BASO # 0.1 10^3/uL (0.0-0.2); BASO % 0.7 % (0.0-1.0); EOS # 0.1 10^3/uL (0.0-0.5); EOS % 1.7 % (0.0-3.0); HEMATOCRIT 40.5 % (36.0-47.0); HEMOGLOBIN 13.1 g/dl (12.0-15.5); LYMPH # 2.2 10^3/uL (1.5-5.0); LYMPH % 29.6 % (24.0-44.0); MEAN CORPUSCULAR HEMOGLOBIN 28.1 pg (27.0-33.0); MEAN CORPUSCULAR HGB CONC 32.3 g/dl (32.0-36.5); MEAN CORPUSCULAR VOLUME 86.7 fl (80.0-96.0); MONO # 0.6 10^3/uL (0.0-0.8); MONO % 7.7 % (2.0-8.0); NEUTROPHILS # 4.5 10^3/uL (1.5-8.5); NEUTROPHILS % 59.9 % (36.0-66.0); PLATELET COUNT, AUTOMATED 287 10^3/uL (150-450); RED BLOOD COUNT 4.67 10^6/uL (4.00-5.40); WHITE BLOOD COUNT 7.4 10^3/uL (4.0-10.0)
[2021-05-09 10:54] LABS: ALBUMIN 3.8 GM/DL (3.2-5.2); ALT/SGPT 37 U/L (12-78); BILIRUBIN,TOTAL 0.3 MG/DL (0.2-1.0); BLOOD UREA NITROGEN 24 MG/DL (7-18); CARBON DIOXIDE LEVEL 26 MEQ/L (21-32); CHLORIDE LEVEL 107 MEQ/L (98-107); CREATININE FOR GFR 0.94 MG/DL (0.55-1.30); FERRITIN 10 NG/ML (8-252); FREE T4 1.14 NG/DL (0.76-1.46); GLOMERULAR FILTRATION RATE > 60.0 (>60); GLUCOSE, FASTING 74 MG/DL (70-100); IRON (FE) 59 UG/DL (50-170); PERCENT SATURATION 11.4 % (13.2-45.0); POTASSIUM SERUM 4.9 MEQ/L (3.5-5.1); SODIUM LEVEL 140 MEQ/L (136-145); THYROID STIMULATING HORMONE 0.838 uIU/ML (0.358-3.740); TOTAL 25(OH) VITAMIN D 34.4 NG/ML (30.0-100.0); TOTAL IRON BINDING CAPACITY 518 UG/DL (250-450); TOTAL PROTEIN 7.3 GM/DL (6.4-8.2)
== END ==
LOC: M LAB 08:26
PROVIDERS: ATTEND Family Medicine
DX: Z13.29 Encounter for screening for other suspected endocrine disorder (principal); Z13.0 Encounter for screening for diseases of the blood and blood-forming organs and certain disorders involving the immune mechanism

== ENCOUNTER → 2021-06-01 | Outpatient (CLI) | payer OTHER ==
[2021-06-01 13:09] LABS: ALBUMIN 3.7 GM/DL (3.2-5.2); ALT/SGPT 37 U/L (12-78); BILIRUBIN,TOTAL 0.3 MG/DL (0.2-1.0); BLOOD UREA NITROGEN 18 MG/DL (7-18); CALCIUM LEVEL 9.5 MG/DL (8.5-10.1); CARBON DIOXIDE LEVEL 26 MEQ/L (21-32); CHLORIDE LEVEL 104 MEQ/L (98-107); CHOLESTEROL LEVEL 177 MG/DL (<200); CHOLESTEROL RISK RATIO 4.116 (<5); CREATININE FOR GFR 0.96 MG/DL (0.55-1.30); GLOMERULAR FILTRATION RATE > 60.0 (>60); GLUCOSE, FASTING 85 MG/DL (70-100); HDL CHOLESTEROL 43 MG/DL (>40); LDL CHOLESTEROL 106 MG/DL (<100); NON-HDL-C 134 MG/DL; POTASSIUM SERUM 4.2 MEQ/L (3.5-5.1); SODIUM LEVEL 138 MEQ/L (136-145); TOTAL PROTEIN 7.3 GM/DL (6.4-8.2); TRIGLYCERIDES LEVEL 139 MG/DL (<150)
== END ==
LOC: M LAB 10:58
PROVIDERS: ATTEND Physician Assistant
DX: L70.0 Acne vulgaris (principal)

== ENCOUNTER → 2021-07-30 | Outpatient (REF) | payer OTHER | LOC: M LAB REF 14:26 | PROVIDERS: ATTEND Nurse Practitioner Family | DX: D23.5 Other benign neoplasm of skin of trunk (principal) ==

== ENCOUNTER → 2021-09-04 | Outpatient (REF) | payer OTHER | LOC: M LAB REF 20:43 | PROVIDERS: ATTEND Family Medicine | DX: J02.9 Acute pharyngitis, unspecified (principal) | CPT/HCPCS: 87070; U0003 ==

== ENCOUNTER → 2022-05-28 | Outpatient (REF) | payer OTHER ==
[~2022-05-28] MED LIST changes: -LABE100T4 PO; +LABE100T6 PO
== END ==
LOC: M SFHCWAGY 17:21
PROVIDERS: ATTEND Specialist
DX: Z12.4 Encounter for screening for malignant neoplasm of cervix (principal)

== ENCOUNTER → 2022-08-22 | Outpatient (CLI) | payer OTHER | LOC: M WHC 08:44 | PROVIDERS: ATTEND Nurse Practitioner Family | DX: R10.2 Pelvic and perineal pain (principal) ==

== ENCOUNTER → 2022-10-24 | Outpatient (CLI) | payer OTHER ==
[2022-10-24 14:42] LABS: BASO # 0.1 10^3/uL (0.0-0.2); BASO % 0.7 % (0.0-1.0); EOS # 0.1 10^3/uL (0.0-0.5); EOS % 1.5 % (0.0-3.0); HEMATOCRIT 40.8 % (36.0-47.0); HEMOGLOBIN 13.2 g/dl (12.0-15.5); LYMPH # 2.3 10^3/uL (1.5-5.0); LYMPH % 27.5 % (24.0-44.0); MEAN CORPUSCULAR HEMOGLOBIN 28.5 pg (27.0-33.0); MEAN CORPUSCULAR HGB CONC 32.4 g/dl (32.0-36.5); MEAN CORPUSCULAR VOLUME 88.1 fl (80.0-96.0); MONO # 0.5 10^3/uL (0.0-0.8); MONO % 6.4 % (2.0-8.0); NEUTROPHILS # 5.2 10^3/uL (1.5-8.5); NEUTROPHILS % 63.4 % (36.0-66.0); PLATELET COUNT, AUTOMATED 265 10^3/uL (150-450); RED BLOOD COUNT 4.63 10^6/uL (4.00-5.40); WHITE BLOOD COUNT 8.2 10^3/uL (4.0-10.0)
[2022-10-24 14:46] LABS: IRON (FE) 91 UG/DL (50-170)
[2022-10-24 14:47] LABS: PERCENT SATURATION 27.4 % (13.2-45.0); TOTAL IRON BINDING CAPACITY 332 UG/DL (250-425)
[2022-10-24 14:56] LABS: ALBUMIN 4.3 G/DL (3.2-5.2); ALKALINE PHOSPHATASE 61 U/L (46-116); ALT/SGPT 13 U/L (7.0-40); AST/SGOT 14 U/L (<34); BILIRUBIN,TOTAL 0.6 MG/DL (0.3-1.2); BLOOD UREA NITROGEN 15 MG/DL (9-23); CALCIUM LEVEL 9.3 MG/DL (8.5-10.1); CARBON DIOXIDE LEVEL 27 MMOL/L (20-31); CHLORIDE LEVEL 103 MMOL/L (98-107); CHOLESTEROL LEVEL 162 MG/DL (<200); CHOLESTEROL RISK RATIO 3.25 (<5); FERRITIN 20.9 NG/ML (7.3-270.7); FREE T4 1.18 NG/DL (0.89-1.76); GLOMERULAR FILTRATION RATE > 60.0 (>60); GLUCOSE, FASTING 83 MG/DL (60-100); HDL CHOLESTEROL 49.8 MG/DL (>40); LDL CHOLESTEROL 102.6 MG/DL (<100); NON-HDL-C 112.2 MG/DL; POTASSIUM SERUM 4.1 MMOL/L (3.5-5.1); SODIUM LEVEL 138 MMOL/L (136-145); THYROID STIMULATING HORMONE 1.388 uIU/ML (0.55-4.78); TOTAL PROTEIN 6.9 G/DL (5.7-8.2); TRIGLYCERIDES LEVEL 48 MG/DL (<150)
== END ==
LOC: M PLALAB 10:11
PROVIDERS: ATTEND Family Medicine
DX: Z13.29 Encounter for screening for other suspected endocrine disorder (principal); Z13.0 Encounter for screening for diseases of the blood and blood-forming organs and certain disorders involving the immune mechanism; Z13.220 Encounter for screening for lipoid disorders; D50.9 Iron deficiency anemia, unspecified

== ENCOUNTER → 2023-04-30 | Outpatient (CLI) | payer OTHER ==
[2023-04-30 09:43] LABS: BASO # 0.1 10^3/uL (0.0-0.2); EOS # 0.1 10^3/uL (0.0-0.5); EOS % 1.7 % (0.0-3.0); HEMATOCRIT 39.9 % (36.0-47.0); HEMOGLOBIN 13.3 g/dl (12.0-15.5); LYMPH # 1.8 10^3/uL (1.5-5.0); LYMPH % 26.6 % (24.0-44.0); MEAN CORPUSCULAR HEMOGLOBIN 29.2 pg (27.0-33.0); MEAN CORPUSCULAR HGB CONC 33.3 g/dl (32.0-36.5); MEAN CORPUSCULAR VOLUME 87.5 fl (80.0-96.0); MONO # 0.4 10^3/uL (0.0-0.8); MONO % 5.1 % (2.0-8.0); NEUTROPHILS # 4.5 10^3/uL (1.5-8.5); NEUTROPHILS % 65.5 % (36.0-66.0); PLATELET COUNT, AUTOMATED 261 10^3/uL (150-450); RED BLOOD COUNT 4.56 10^6/uL (4.00-5.40); WHITE BLOOD COUNT 6.9 10^3/uL (4.0-10.0)
[2023-04-30 10:15] LABS: ALBUMIN 4.2 G/DL (3.2-5.2); ALKALINE PHOSPHATASE 64 U/L (46-116); ALT/SGPT 20 U/L (7.0-40); AST/SGOT 15 U/L (<34); BILIRUBIN,TOTAL 0.6 MG/DL (0.3-1.2); BLOOD UREA NITROGEN 15 MG/DL (9-23); CALCIUM LEVEL 9.4 MG/DL (8.5-10.1); CARBON DIOXIDE LEVEL 28 MMOL/L (20-31); CHLORIDE LEVEL 108 MMOL/L (98-107); CREATININE FOR GFR 0.85 MG/DL (0.55-1.30); GLOMERULAR FILTRATION RATE > 60.0 (>60); GLUCOSE, FASTING 87 MG/DL (60-100); IRON (FE) 94 UG/DL (50-170); PERCENT SATURATION 29.5 % (13.2-45.0); POTASSIUM SERUM 4.6 MMOL/L (3.5-5.1); SODIUM LEVEL 139 MMOL/L (136-145); TOTAL IRON BINDING CAPACITY 319 UG/DL (250-425)
[2023-04-30 10:17] LABS: FOLATE 15.7 NG/ML (>5.4); FREE T4 1.22 NG/DL (0.89-1.76); THYROID STIMULATING HORMONE 1.897 uIU/ML (0.55-4.78); VITAMIN B12 LEVEL 617 PG/ML (211-911)
[2023-05-01 18:08] LABS: IgG P18 AB Absent (.); IgG P23 AB Absent (.); IgG P28 AB Absent (.); IgG P30 AB Absent (.); IgG P39 AB Absent (.); IgG P41 AB Absent (.); IgG P45 AB Absent (.); IgG P66 AB Absent (.); IgG P93 AB Absent (.); IgM P23 AB Absent (.); IgM P39 AB Absent (.); IgM P41 AB Absent (.); LYME IgG WB INTERPRETATION Negative (.); LYME IgM WB INTERPRETATION Negative (.); TESTOSTERONE FREE (DIRECT) 0.5 pg/mL (0.0-4.2)
== END ==
LOC: M LAB 08:27
PROVIDERS: ATTEND Family Medicine
DX: R68.82 Decreased libido (principal)

== ENCOUNTER → 2023-09-11 | Outpatient (REF) | LOC: M EMP 09:33 | PROVIDERS: ATTEND Family Medicine | DX: Z11.52 Encounter for screening for COVID-19 (principal) ==

== ENCOUNTER → 2023-09-11 | Outpatient (REF) | LOC: M EMP 09:47 | PROVIDERS: ATTEND Family Medicine | DX: Z11.52 Encounter for screening for COVID-19 (principal) ==